=== PATIENT | male | born 1965 | race Two or more races ===

== ENCOUNTER → 2022-12-08 12:49 | Outpatient (REF) | payer OTHER, SELFPAY ==
--- NOTE | 2022-12-08 12:54 | CA_ITS ---
Transthoracic Echocardiogram Patient (Last, First, Middle): Negro Hernandez, Gender: Male Date of : 1965 Age: 57 Procedure Date: 12/08/2022 Procedure Type: Transthoracic Echocardiogram Location: OP Height: 180.34 cm Weight: 95.26 kg BSA: 2.15 m2 Heart Rate: bpm BP: 124 / 70 mmHg [employer] Manager: ANUPAM Referring MD: Charley Reina NP Symptoms: CP R07.89 Study Quality: Good ECG Rhythm: Sinus Conclusions: - The left ventricular systolic function is normal. The visually estimated ejection fraction is between 55-60%. - No obvious valvular pathology seen on this study. Findings Left Ventricle Normal left ventricular cavity size. There is normal left ventricular wall thickness. The left ventricular systolic function is normal. The visually estimated ejection fraction is between 55-60%. There is no evidence of regional wall motion abnormalities. Diastolic function is normal for age. Right Ventricle Normal right ventricular cavity size and systolic function. Atria Both atria are normal in size. Aortic Valve There is a normal trileaflet aortic valve. There is no aortic valve stenosis. There is no aortic valve regurgitation. Mitral Valve There is mild anterior mitral leaflet thickening. There is no mitral valve regurgitation. There is no mitral valve stenosis. Pulmonic Valve The pulmonic valve is likely normal. Tricuspid Valve Normal tricuspid valve structure. There is trace tricuspid valve regurgitation. There is no evidence of pulmonary hypertension. Great Vessels The asc aorta is normal in size. Venous The inferior vena cava is normal in size and collapses greater than 50% with inspiration. Pericardium/Pleural There is no evidence of pericardial effusion. Prior Study Comparison No prior study available for comparison. Recommendations, Care & Conclusions No obvious valvular pathology seen on this study. Measurements 2D Linear Measurements IVSd: 0.92 0.6-0.9/0.6-1.0 cm LVIDd: 4.58 3.9-5.3/4.2-5.9 cm LVIDd Index: 2.13 2.4-3.2/2.2-3.1 cm/m2 LVIDs: 3.27 2.0-3.6 cm LVPWd: 0.99 0.7-1.1 cm Ao Root: 3.00 2.1-3.5 cm LA Diam: 3.90 2.7-3.8/3.0-4.0 cm LAIDs Index: 1.81 1.5-2.3 cm/m2 LV Mass: 184.25 67-162/88-224 g LV Mass Index: 85.70 43-95/49-115 g/m2 LVOT Diam: 2.10 3.0+(-)1.3 cm 2D Systolic Function EF 4C: 53.20 >55% EF 2C: 54.60 >55% EF BiP: 53.20 >55% Mitral Valve MV Pk E: 0.67 MV PK A: 0.84 MV Decel Time: 218.00 E/A: 0.80 E'Lateral: 7.72 E'Medial: 6.64 E/E' Med: 10.10 E/E' Lat: 8.70 PHT: 64.00 MVA PHT: 3.44 Decel Jay: 3.08 Aortic Valve AoV Pk Deshawn: 1.41 AoV Mn Deshawn: 0.91 AoV VTI: 0.29 AoV Pk Grad: 8.00 Aov Mn Grad: 4.00 ALEC Cont.VTI: 2.65 LVOT LVOT Pk Deshawn: 0.84 LVOT Mn Deshawn: 0.54 LVOT VTI: 0.22 LVOT Pk Grad: 3.00 LVOT Mn Grad: 1.00 LVOT Diam: 2.10 LVOT Area: 3.46 Diastolic Function MV Pk E: 0.67 MV Pk A: 0.84 E/A: 0.80 E'Medial: 6.64 E/E' Med: 10.10 E' Laterial: 7.72 E/E' Lat: 8.70 Right Ventricle TAPSE (mm): 23.00 TVS' Deshawn: 11.00 Tricuspid Valve TR Pk Deshawn: 2.11 TR Pk Grad: 18.00 RA Press: 3.00 RVSP: 21.00 Great Vessels Aorta Ao Root-2D: 3.00 2.0-3.7 cm Ao Asc: 3.30 2.1-3.4 cm Pulmonary Valve PV Pk Deshawn: 0.92 Peak PV Grad: 3.00 Updated in Other Vendor System with Status of Final Jossue Sanchez MD electronically signed on 12/09/2022 10:41:55 AM with status of Final
== END ==
LOC: HO.CARD 12:49
PROVIDERS: PCP Nurse Practitioner; Visit Provider Nurse Practitioner
DX: R07.89 Other chest pain (principal)
CPT/HCPCS: 93306

== ENCOUNTER → 2022-12-08 12:54 | Outpatient (BNV) | payer OTHER, SELFPAY | PROVIDERS: PCP Nurse Practitioner; Visit Provider Internal Medicine | DX: R07.89 Other chest pain (principal) | CPT/HCPCS: 93306 ==